=== PATIENT | female | born 1940 | race Caucasian/White ===

== ENCOUNTER 2018-07-01 19:48 | Emergency (ER) | payer OTHER ==
[~2018-07-01] VITALS: Ht 170.2 cm; Wt 77.1 kg
[~2018-07-01 19:48] MED LIST: ACET325T9 PO; ASPI-482 PO; BIMA2.5D EACHEYE; CEPH-264 PO; CYAN200014 PO; FISH1CAP PO; GLUC-105 PO; LEVO125T PO; LISI10TA2 PO; OMEP20TA8 PO; Oxycodone Hcl/Acetaminophen PO; flexamin
[2018-07-01 19:50] VITALS: BP 155/76
--- NOTE | 2018-07-01 20:25 | PHYS DOC ---
Past Medical History Past Medical History: Cancer, High Cholesterol, Hypertension, Hypothyroid, Other Additional Past Medical Histor: BREAST CA, RADIATION, CHEMO (SHELIA VEGAS APRN) Past Surgical History: Hysterectomy, Other Additional Past Surgical Histo: L LUMPECTOMY, back (SHELIA VEGAS APRN) Alcohol Use: None Drug Use: None (SHELIA VEGAS APRN) Adult General Chief Complaint Chief Complaint: HIP PAIN [facility] HPI Patient is a 78 year old Female who presents with left hip pain. Patient reports she was walking down some steps when she thought she was at the bottom and missed a step causing her to fall down 2 steps landing on her left hip. Straight this happened earlier today. Denies head neck back pain. Denies any other discomfort other than pain to her left lateral tibia. Reports pain is worse on palpation. Reports she walked in today normally as she would, using her cane. States she was also a little concerned because she had just had a spinal procedure, and wanted to make sure it looked fine because she could not see her back. States discomfort to her left lower leg feels more a burning pain but does worsen on palpation. (SHELIA VEGAS APRN) Review of Systems Review of Systems Constitutional: Denies fever or chills [] Eyes: Denies change in visual acuity, redness, or eye pain [] HENT: Denies nasal congestion or sore throat [] Respiratory: Denies cough or shortness of breath [] Cardiovascular: No additional information not addressed in HPI [] GI: Denies abdominal pain, nausea, vomiting, bloody stools or diarrhea [] : Denies dysuria or hematuria [] Musculoskeletal: Denies back pain or joint pain, does report pain to left hip and left lower leg Integument: Denies rash or skin lesions [] Neurologic: Denies headache, focal weakness or sensory changes [] Endocrine: Denies polyuria or polydipsia [] All other systems were reviewed and found to be within normal limits, except as documented in this note. (SHELIA VEGAS APRN) Allergies Allergies Allergies Coded Allergies Type Severity Reaction Last Updated Verified No Known Drug Allergies 12/31/13 No (LUCA MIN DO) Physical Exam Physical Exam Constitutional: Well developed, well nourished, no acute distress, non-toxic appearance. [] Neck: Normal range of motion, no tenderness, supple, no stridor. [] Cardiovascular:Heart rate regular rhythm, no murmur [] Abdomen: Bowel sounds normal, soft, no tenderness, no masses, no pulsatile masses. [] Skin: Warm, dry, no erythema, no rash. [] Back: No tenderness, no CVA tenderness. [] Extremities: No tenderness, no cyanosis, no clubbing, ROM intact, no edema. No bruising. Patient able to independently rotate internally and externally left leg. Able to flex and extend the leg. Able to move ankle and foot independently without difficulty. [] Neurologic: Alert and oriented X 3, normal motor function, normal sensory function, no focal deficits noted. [] Psychologic: Affect normal, judgement normal, mood normal. [] (SHELIA VEGAS APRN) Current Patient Data Vital Signs Vital Signs Date Time Temp Pulse Resp B/P (MAP) Pulse Ox O2 Delivery O2 Flow Rate FiO2 07/01/18 19:50 97.7 97 16 155/76 (102) 99 Room Air 97.7 (LUCA MIN DO) EKG EKG [] (SHELIA VEGAS APRN) Radiology/Procedures Radiology/Procedures Two-view left hip x-ray and left tib-fib x-ray without noted fracture or dislocation. Was noted to have abnormality to left tibia just inferior to patella. Compared to prior studies and no difference in size or density noted comparatively, noted on prior knee x ray. Dr Min Reviewed X Rays and provided interpretation. [] (SHELIA VEGAS APRN) Course & Med Decision Making Course & Med Decision Making Discussed radiology findings with patient, patient reports she was unaware of spot on bone previously, reports she is happy she does not have a fracture. Discussed use of NSAIDs and follow up with PCP as needed. Patient in agreement with plan of care without further questions or concerns [] (SHELIA VEGAS APRN) Dragon Disclaimer Dragon Disclaimer This electronic medical record was generated, in whole or in part, using a voice recognition dictation system. (SHELIA VEGAS APRN) Departure Departure Impression: Primary Impression: Left hip pain Additional Impression: Left leg pain Disposition: 01 HOME, SELF-CARE Condition: GOOD Referrals: EVERETT PHOENIX MD (PCP) Patient Instructions: Hip Pain Attending Signature Attending Signature I have reviewed the PA/UNIT CONTROL WORKER's note and plan of care. I was available for consultation as needed during the patient's visit in the emergency department. I agree with the clinical impression, plan, and disposition. (LUCA MIN DO) Problem Qualifiers SHELIA VEGAS APRN July 01, 2018 20:25 LUCA MIN DO July 02, 2018 05:29
--- NOTE | 2018-07-01 21:19 | RAD ---
EXAM: Left tibia and fibula, 2 views; pelvis and left hip, 3 views. HISTORY: Pain. COMPARISON: Hip radiograph stated 09/28/2014. FINDINGS: Pelvis and left hip: Frontal views of the pelvis and frontal and frog-leg views of the left hip are obtained. There is no fracture, dislocation or subluxation. There is an interspinous decompression device at L4-L5. There is lumbar scoliosis and left lateral endplate remodeling and disc space narrowing at this level. Left tibia and fibula: 2 views of the tibia and fibula are obtained. There is no fracture, dislocation or subluxation. There is a 1.3 cm sclerotic lesion within the proximal tibial diaphysis. There is mild left knee osteoarthritis. There is no periosteal reaction. There is a small plantar spur. IMPRESSION: 1. No acute osseous finding. 2. 1.3 cm sclerotic lesion within the proximal tibial diaphysis. In the absence of known malignancy, this may be a prominent bone island. The possibility of a sclerotic metastasis is not excluded. 3. Mild left knee osteoarthritis. Electronically signed by: Venessa Bearden MD (07/01/2018 9:16 PM) [facility]
== END 2018-07-01 21:55 | disposition home or self-care (01) ==
LOC: ER 19:48
DX: M25.552 Pain in left hip (principal); M79.662 Pain in left lower leg; E78.00 Pure hypercholesterolemia, unspecified; I10 Essential (primary) hypertension; E03.9 Hypothyroidism, unspecified; Z90.710 Acquired absence of both cervix and uterus
CPT/HCPCS: 73502; 73590; 99284

== ENCOUNTER 2021-04-23 19:13 | Emergency (ER) | payer MEDICARE ==
[~2021-04-23] VITALS: Ht 170.2 cm; Wt 81.0 kg
[~2021-04-23 19:13] MED LIST changes: +LISI10TA16 PO; -LISI10TA2 PO
[2021-04-23 19:20] VITALS: BP 189/89
--- NOTE | 2021-04-23 19:34 | PHYS DOC ---
Past Medical History Past Medical History: Cancer, High Cholesterol, Hypertension, Hypothyroid, Other Additional Past Medical Histor: BREAST CA, RADIATION, CHEMO Past Surgical History: Hysterectomy, Other Additional Past Surgical Histo: L LUMPECTOMY, back Smoking Status: Never Smoker Alcohol Use: None Drug Use: None General Adult EDM: Chief Complaint: HEADACHE HPI: HPI: Patient is a 80 year old female who presents with an episode of mild discomfort and pain in her left church and around her left upper cheek. Symptoms occurred 4 days ago and have not returned. She reports that she felt like there is a tingling sensation at the top of her cheek. Symptoms resolved rather quickly. No motor weakness or facial droop reported. She has chronic vision difficulty secondary to cataracts, but she denies any acute vision loss or acute vision changes. No rash. No fall, head injury or trauma reported. She denies dizziness or vertigo symptoms. She denies fevers or chills. She denies photophobia. She denies nausea, vomiting, chest pain, dyspnea, palpitations. No previous similar symptoms. She reports that she has been worrying about those symptoms having occurred several days ago, she decided to be seen today for it. She has scheduled upcoming appointments with her inventory clerk, primary care physician, all within the next week or so. She does have a history of breast cancer, lumpectomy and chemo and radiation therapy, though she is not taking any of these at present. She denies any limb or peripheral numbness, tingling or motor weakness symptoms. Review of Systems: Review of Systems: Constitutional: Denies fever or chills. [] Eyes: Denies change in visual acuity. Denies vision loss. Denies eye redness or pain. HENT: Denies nasal congestion or sore throat. [] Respiratory: Denies cough or shortness of breath. [] Cardiovascular: Denies chest pain or edema. [] GI: Denies abdominal pain, nausea, vomiting : Denies urinary symptoms. Musculoskeletal: She does have chronic but unchanged low back pain. Integument: Denies rash. [] Neurologic: One episode of mild left-sided temporal scalp and cheek pain, resolved quickly, occurred once 4 days ago. No return of headache, no global headache. No numbness, tingling, motor weakness. No facial droop. No speech difficulty. Psychiatric: Mild anxiety as it pertains to current clinical condition Heart Score: C/O Chest Pain: No Risk Factors: Risk Factors: DM, Current or recent (<one month) smoker, HTN, HLP, family history of CAD, obesity. Risk Scores: Score 0 - 3: 2.5% MACE over next 6 weeks - Discharge Home Score 4 - 6: 20.3% MACE over next 6 weeks - Admit for Clinical Observation Score 7 - 10: 72.7% MACE over next 6 weeks - Early Invasive Strategies Allergies: Allergies: Allergies Coded Allergies Type Severity Reaction Last Updated Verified No Known Drug Allergies 12/31/13 No Physical Exam: PE: Constitutional: Well developed, well nourished, no acute distress, non-toxic appearance. [] HENT: Normocephalic, atraumatic, oropharynx is patent and clear, mucous membranes are moist. No oral trauma noted. No swelling of the face or oral cavity. TMs are clear bilaterally. External ears normal bilaterally. No tenderness of the temporal artery. Eyes: PERRL, EOMI, conjunctiva normal, no discharge. No scleral injection, no scleral icterus. No periorbital edema or erythema. No nystagmus. Subtle bilateral and symmetric corneal opacities. Neck: Normal range of motion, no tenderness, supple, no stridor. Achy midline, no JVD, no meningismus. Cardiovascular:Heart rate regular rhythm, 2 radial pulses bilaterally Lungs & Thorax: Bilateral breath sounds clear to auscultation [] Skin: Warm, dry, no erythema, no rash. [] Back: No tenderness, no CVA tenderness. [] Extremities: No tenderness, no cyanosis, no clubbing, ROM intact, no edema. No calf tenderness Neurologic: She is awake, alert, oriented x3, cranial nerves II through XII grossly intact, 5-5 motor strength all 4 extremities, no pronator drift or dysmetria. No limb ataxia, sensation grossly intact, speech is clear and fluent, gait is steady. Psychologic: She is mildly anxious but she is very pleasant and cooperative EKG: EKG: [] Radiology/Procedures: Radiology/Procedures: IMAGING REPORT Signed PATIENT: PA MERRILL ACCOUNT: [id number] : 1940 LOCATION: ER AGE: 80 SEX: F EXAM STATUS: REG ER ORD. PHYSICIAN: BRENDEN ALONZO DO REASON: left church pain PROCEDURE: CT HEAD WO CONTRAST Exam: CT head INDICATION: Left temporal pain TECHNIQUE: Sequential axial images through the head were obtained without the administration of IV contrast. Exposure: One or more of the following in the visualized dose reduction techn iques were utilized for this examination: 1. Automated exposure control 2. Adjustment of the MA and/or KV according to patient size 3. Use of iterative of reconstructive technique Comparisons: None FINDINGS: No focal parenchymal lesion or hemorrhage is identified. There is no midline shift or sulcal effacement. No acute vascular territory infarction is identified. Bai-white distinction is preserved. The ventricular system is within normal limits without compression hydrocephalus. The basal cisterns are well maintained. The visualized portions of the paranasal sinuses and mastoid air cells are well- pneumatized. No acute fractures. IMPRESSION: No acute intracranial abnormality. Electronically signed by: Vitaliy Brewer MD (04/23/2021 8:28 PM) [facility] DICTATED and SIGNED BY: VITALIY BREWER MD DATE: 04/23/[id number] 0 Course & Med Decision Making: Course & Med Decision Making Pertinent Labs and Imaging studies reviewed. (See chart for details) Patient had no return of any pain or discomfort. She has a nonfocal neurologic exam. Emergency department work-up is unremarkable for any acute life- threatening process. CT imaging is unremarkable. I discussed the findings, differential diagnosis and plan of care with her. I told her to contact her PCP for follow-up, keep all scheduled upcoming appointments. Return precautions were given. Also, regarding her hypertension here, I told her to make sure she follows up and has history. Her scheduled appointments this week. She does not normally have a history of hypertension. I suspect this might be related to u nderlying anxiety about her current clinical condition. She is otherwise asymptomatic with this hypertension at present. Lauraon Disclaimer: Geraldine Disclaimer: This electronic medical record was generated, in whole or in part, using a voice recognition dictation system. Departure Departure Impression: Primary Impression: Headache Qualified Codes: R51.9 - Headache, unspecified Disposition: HOME / SELF CARE / HOMELESS Condition: STABLE Referrals: CRYS RUDOLPH D.O. (PCP) Patient Instructions: General Headache Without Cause Additional Instructions: Return to the ER for any more severe pain, vomiting, weakness, if you are acutely injured or sustained any head trauma, if you develop any sudden vision loss, fever of 100.4 or higher or any other concerns. Keep your scheduled upcoming appointments with your physicians. BRENDEN ALONZO DO Apr 23, 2021 19:34
--- NOTE | 2021-04-23 20:31 | RAD ---
Exam: CT head INDICATION: Left temporal pain TECHNIQUE: Sequential axial images through the head were obtained without the administration of IV co ntrast. Exposure: One or more of the following in the visualized dose reduction techniques were utilized for this examination: 1. Automated exposure control 2. Adjustment of the MA and/or KV according to patient size 3. Use of iterative of reconstructive technique Comparisons: None FINDINGS: No focal parenchymal lesion or hemorrhage is identified. There is no midline shift or sulcal effaceme nt. No acute vascular territory infarction is identified. Bai-white distinction is preserved. The ventricular system is within normal limits without compression hydrocephalus. The basal cisterns are well maintained. The visualized portions of the paranasal sinuses and mastoid air cells are well-pneumatized. No acute fractures. IMPRESSION: No acute intracranial abnormality. Electronically signed by: Vitaliy Delacruz MD (04/23/2021 8:28 PM) [facility]
[2021-04-23 20:33] LABS: BASO % 1 % (0-3); EOS % 1 % (0-3); HEMATOCRIT 40.9 % (36.0-47.0); HEMOGLOBIN 13.2 g/dL (12.0-15.5); LYMPH # 1.3 x10^3/uL (1.0-4.8); LYMPH % 29 % (24-48); MEAN CORPUSCULAR HEMOGLOBIN 29 pg (25-35); MEAN CORPUSCULAR HGB CONC 32 g/dL (31-37); MEAN CORPUSCULAR VOLUME 90 fL (79-100); MONO # 0.5 x10^3/uL (0.0-1.1); MONO % 10 % (0-9); NEUT # 2.8 x10^3/uL (1.8-7.7); NEUT % 60 % (31-73); PLATELET COUNT 195 x10^3/uL (140-400); RED BLOOD COUNT 4.53 x10^6/uL (3.50-5.40); RED CELL DISTRIBUTION WIDTH 13.3 % (11.5-14.5); WHITE BLOOD COUNT 4.6 x10^3/uL (4.0-11.0)
[2021-04-23 20:37] LABS: CALCIUM 9.3 mg/dL (8.5-10.1); CREATININE 1.2 mg/dL (0.6-1.0); POTASSIUM 4.1 mmol/L (3.5-5.1)
== END 2021-04-23 21:48 | disposition home or self-care (01) ==
LOC: ER 19:13
DX: R51.9 Headache, unspecified (principal); R20.2 Paresthesia of skin; E78.00 Pure hypercholesterolemia, unspecified; I10 Essential (primary) hypertension; E03.9 Hypothyroidism, unspecified
CPT/HCPCS: 36415; 70450; 80048; 85025; 85651; 99284-25